=== PATIENT | male | born 1955 | race Caucasian/White ===

== ENCOUNTER 2017-06-07 11:35 | Inpatient (IN) | payer OTHER ==
[~2017-06-07] VITALS: Ht 180.3 cm; Wt 70.4 kg
[~2017-06-07 11:35] MED LIST: ALEVE220 MG PO; AMITRIPTYLINE H50 MG PO; AMLODIPINE BESY10 MG PO; APRESOLINE25 MG PO; ASPIR-LOW81 MG PO; ATORVASTATIN CA10 MG PO; AUGMENTIN875 MG PO; BACTRIM,SEPT1 TABLET PO; BENTYL10 MG PO; CEPHALEXIN500 MG PO; CITALOPRAM HBR10 MG PO; CLONIDINE1 EAC1 TD; COLACE100 MG PO; CONZIP100 MG PO; DICYCLOMINE HCL10 MG PO; ELAVIL100 MG PO; ENDOCET 5-3251 EACH PO; FOLIC ACID1 MG PO; IBUPROFEN800 MG PO; INDOCIN50 MG PO; K-DUR20 MEQ PO; KLOR-CON20 MEQ PO; LIBRIUM25 MG PO; LIPITOR10 MG PO; LISINOPRIL10 MG PO; LISINOPRIL20 MG PO; LOPRESSOR25 MG PO; LOPRESSOR50 MG PO; METOCLOPRAMIDE H5 MG PO; METOPROLOL TART25 MG PO; NAPROSYN500 MG PO; NAPROXEN500 MG PO; NICOTINE PATCH1 EAC2 TD; NOHOMEMEDS; NORCO 5/3251 TABLET PO; NORVASC10 MG PO; OMEPRAZOLE40 M1 PO; OXYCODONE HCL5 MG PO; PEPTO BISMOL240 ML PO; PERCOCET 5/31 TABLET PO; PRILOSEC20 MG PO; RISPERDAL0.5 MG PO; ROXICODONE5 MG PO; STOOL SOFTENER100 MG PO; THERAGRAN1 TABLET PO; TRAMADOL HCL50 MG PO; TUMS500 MG PO; Thiamine,Vitamin B1 PO; VALIUM5 MG PO; WARFARIN SODIUM5 MG PO; ZOFRAN ODT8 MG PO
[2017-06-07 12:42] LABS: HEMATOCRIT 42.5 % (38.0-50.0); MCH 35.6 PG (29.0-34.0); MCHC 35.3 G/DL (30.0-36.0); MEAN PLAT.VOLUME 10.7 uM^3 (9.0-12.4); PLATELET COUNT 213 K/uL (156-360); RBC DIS.WIDTH-CV 13.5 % (11.8-14.6); RBC DIS.WIDTH-SD 50.7 % (39-53); RED BLOOD COUNT 4.21 M/uL (4.00-5.50)
[2017-06-07 12:52] LABS: CHLORIDE 106 mEq/L (99-109); POTASSIUM 4.3 mEq/L (3.7-5.4); SODIUM 145 mEq/L (136-147)
[2017-06-07 12:54] LABS: GLUCOSE 88 mg/dL (70-99)
[2017-06-07 12:56] LABS: ANION GAP 12 MEQ/L (2-14)
[2017-06-07 12:58] LABS: GFR ESTIMATE (CALCULATED) > 59 mL/min/
[2017-06-07 12:59] LABS: UREA NITROGEN (BUN) 13 mg/dL (9-23)
[2017-06-07 13:36] LABS: TROP-I INTERPRETATION NEGATIVE; TROPONIN-I < 0.01 ng/mL (0.0-0.30)
[2017-06-07 13:43] LABS: TOTAL BILIRUBIN 0.5 mg/dL (0.0-1.0)
[2017-06-07 13:44] LABS: ALKALINE PHOSPHATASE 77 IU/L (3-129)
[2017-06-07 13:46] LABS: DIRECT BILIRUBIN 0.2 mg/dL (0.0-0.3)
[2017-06-07 16:35] LABS: TROP-I INTERPRETATION NEGATIVE; TROPONIN-I < 0.01 ng/mL (0.0-0.30)
[2017-06-07 18:38] LABS: TROP-I INTERPRETATION NEGATIVE; TROPONIN-I < 0.01 ng/mL (0.0-0.30)
[2017-06-07 20:00] VITALS: BP 175/91
[2017-06-07 21:02] LABS: MAGNESIUM 1.6 mg/dL (1.3-2.7)
[2017-06-07 21:21] LABS: Estimated Average Glucose 97 mg/dL (70-123)
[2017-06-07 21:25] LABS: HDL CHOLESTEROL 103 MG/DL (Desirable>=40); LDL CHOLESTEROL 107 mg/dL (Desirable<100); NON-HDL CHOLESTEROL 123 mg/dL (Desirable<160); TOTAL CHOLESTEROL 226 mg/dL (Desirable<200); TRIGLYCERIDES 78 MG/DL (Normal: <150)
[2017-06-08] VITALS (7 sets, daily range): BP systolic 141–185; BP diastolic 79–97
[2017-06-08 01:30] LABS: TROP-I INTERPRETATION NEGATIVE; TROPONIN-I 0.01 ng/mL (0.0-0.30)
[2017-06-08 02:06] LABS: AMPHETAMINES QUANT VALUE 0 NG/ML; BARBITUATES QUANT VALUE 0 NG/ML; BENZODIAZEPINES QUANT VALUE 0 NG/ML; BENZODIAZEPINES, URINE SCREEN Negative (200 ng/mL); MARIJUANA QUANT VALUE 0 NG/ML; PHENCYCLIDINE QUANT VALUE 0 NG/ML
[2017-06-08 05:50] LABS: TROP-I INTERPRETATION NEGATIVE; TROPONIN-I 0.01 ng/mL (0.0-0.30)
[2017-06-08] MEDS ORDERED: ATORVASTATIN CA40 MG PO (10:26)
[2017-06-08] MEDS ORDERED: ASPIR-LOW81 MG PO (10:26)
[2017-06-08] MEDS ORDERED: LOPRESSOR25 MG PO (10:26)
[2017-06-08] MEDS ORDERED: LISINOPRIL10 MG PO (10:26)
[2017-06-08] MEDS ORDERED: LISINOPRIL20 MG PO (12:53)
[2017-06-09 04:11] VITALS: BP 162/68
[2017-06-09 08:40] VITALS: BP 166/87
[2017-06-09 11:20] VITALS: BP 178/93
[2017-06-09 16:10] VITALS: BP 178/93
[2017-06-09 20:21] VITALS: BP 138/85
[2017-06-09 23:43] VITALS: BP 129/73
[2017-06-10] VITALS: BP 129/73
[2017-06-10 03:40] VITALS: BP 157/84
[2017-06-10 08:27] VITALS: BP 152/82
[2017-06-10 09:06] LABS: HEMATOCRIT 35.6 % (38.0-50.0); MCH 36.7 PG (29.0-34.0); MCHC 34.8 G/DL (30.0-36.0); MEAN PLAT.VOLUME 11.8 uM^3 (9.0-12.4); NRBC (%) 0.1 /100 WBC (0-0); PLATELET COUNT 161 K/uL (156-360); RBC DIS.WIDTH-CV 13.8 % (11.8-14.6); RBC DIS.WIDTH-SD 53.8 % (39-53); RED BLOOD COUNT 3.38 M/uL (4.00-5.50)
[2017-06-10 09:10] LABS: MCV 105.3 FL (86-99)
[2017-06-10 09:23] LABS: ANION GAP 8 MEQ/L (2-14); CHLORIDE 109 MEQ/L (99-109); GFR ESTIMATE (CALCULATED) > 59 mL/min/; GLUCOSE 127 mg/dL (70-99); POTASSIUM 4.2 MEQ/L (3.7-5.4); SAMPLE HEMOLYSIS CHECK 0; SAMPLE ICTERIC CHECK 0; SAMPLE LIPEMIA CHECK 0; SODIUM 142 MEQ/L (136-147); UREA NITROGEN (BUN) 17 mg/dL (9-23)
[2017-06-10 12:09] VITALS: BP 149/83
[2017-06-10] MEDS ORDERED: CELECOXIB200 MG PO (15:30)
[2017-06-10] MEDS ORDERED: LISINOPRIL20 MG PO (15:30)
[2017-06-10] MEDS ORDERED: ENDOCET 5-3251 EACH PO (15:30)
[2017-06-10] MEDS ORDERED: LOPRESSOR25 MG PO (15:31)
[2017-06-10] MEDS ORDERED: CYCLOBENZAPRINE10 MG PO (15:31)
[2017-06-10 16:01] VITALS: BP 137/81
== END 2017-06-10 17:53 | disposition home health service (06) | DRG 472 ==
LOC: EME 11:35 → 5WEST 16:07 → EDOF 16:07 → ENRESERV 16:14 → 5WEST 19:46 → 3EAST 06-08 13:23 → 5WEST 06-08 13:23 → ENRESERV 06-08 14:03 → 5WEST 06-09 12:20 → ENRESERV 06-09 12:32 → 3EAST 06-09 15:11
PROVIDERS: Hospitalist; Physician Assistant
DX: M47.12 Other spondylosis with myelopathy, cervical region (principal); S12.400A Unspecified displaced fracture of fifth cervical vertebra, initial encounter for closed fracture; I10 Essential (primary) hypertension; M43.5X2 Other recurrent vertebral dislocation, cervical region; M48.02 Spinal stenosis, cervical region; F10.20 Alcohol dependence, uncomplicated; F17.200 Nicotine dependence, unspecified, uncomplicated; M43.12 Spondylolisthesis, cervical region; M46.82 Other specified inflammatory spondylopathies, cervical region; M54.12 Radiculopathy, cervical region; Z90.81 Acquired absence of spleen; Z83.3 Family history of diabetes mellitus; Z79.899 Other long term (current) drug therapy; Z91.14 Patient's other noncompliance with medication regimen; I25.10 Atherosclerotic heart disease of native coronary artery without angina pectoris; R27.0 Ataxia, unspecified; R29.2 Abnormal reflex; G89.29 Other chronic pain; M54.2 Cervicalgia; Z86.73 Personal history of transient ischemic attack (TIA), and cerebral infarction without residual deficits; E78.5 Hyperlipidemia, unspecified; K21.9 Gastro-esophageal reflux disease without esophagitis; M54.9 Dorsalgia, unspecified
CPT/HCPCS: 70450; 70551; 72020; 72040; 72125; 72141; 76000; 80048; 80061; 80076; 80306 90; 82607; 83036; 83735; 84484; 85027; 93005; 99281; 99285; C1713; G0378; J0131; J0360; J0690; J1100; J1170; J1200; J1885; J2250; J2270; J2405; J3010; J3411; J3475; J3480; J7030

== ENCOUNTER 2017-06-28 01:30 | Observation (INO) | payer OTHER ==
[~2017-06-28] VITALS: Ht 180.3 cm; Wt 68.3 kg
[~2017-06-28 01:30] MED LIST changes: +ATORVASTATIN CA40 MG PO; +CELECOXIB200 MG PO; +CYCLOBENZAPRINE10 MG PO
[2017-06-28 02:23] LABS: CHLORIDE 101 mEq/L (99-109); POTASSIUM 4.1 mEq/L (3.7-5.4); SODIUM 143 mEq/L (136-147)
[2017-06-28 02:25] LABS: GLUCOSE 91 mg/dL (70-99)
[2017-06-28 02:26] LABS: ANION GAP 17 MEQ/L (2-14)
[2017-06-28 02:27] LABS: HEMATOCRIT 37.8 % (38.0-50.0); MCH 35.2 PG (29.0-34.0); MCHC 35.2 G/DL (30.0-36.0); MEAN PLAT.VOLUME 10.1 uM^3 (9.0-12.4); PLATELET COUNT 406 K/uL (156-360); RBC DIS.WIDTH-CV 11.9 % (11.8-14.6); RBC DIS.WIDTH-SD 43.6 % (39-53); RED BLOOD COUNT 3.78 M/uL (4.00-5.50); WHITE BLOOD COUNT 12.5 K/uL (4.1-10.2)
[2017-06-28 02:29] LABS: GFR ESTIMATE (CALCULATED) > 59 mL/min/
[2017-06-28 02:30] LABS: UREA NITROGEN (BUN) 13 mg/dL (9-23)
[2017-06-28 02:35] LABS: TROP-I INTERPRETATION NEGATIVE; TROPONIN-I 0.01 ng/mL (0.0-0.30)
[2017-06-28] MEDS ORDERED: OMEPRAZOLE40 M1 PO ×2 (03:09→10:04)
[2017-06-28] MEDS ORDERED: DICLOFENAC POTA50 MG PO (03:10)
[2017-06-28 05:07] VITALS: BP 202/99
[2017-06-28 06:34] VITALS: BP 185/95
[2017-06-28 08:27] VITALS: BP 179/88
[2017-06-28 08:42] LABS: TROP-I INTERPRETATION NEGATIVE; TROPONIN-I < 0.01 ng/mL (0.0-0.30)
[2017-06-28] MEDS ORDERED: LIPITOR40 MG PO (10:03)
[2017-06-28 12:22] VITALS: BP 156/84
[2017-06-28 14:19] LABS: TROP-I INTERPRETATION NEGATIVE; TROPONIN-I < 0.01 ng/mL (0.0-0.30)
== END 2017-06-28 15:29 | disposition home or self-care (01) ==
LOC: EME → EDBD 01:30 → EDOF 03:30 → ENRESERV 03:31 → 5WEST 04:56
PROVIDERS: Emergency Medicine; Nurse Practitioner Adult Health
DX: R07.9 Chest pain, unspecified (principal); M54.2 Cervicalgia; F10.20 Alcohol dependence, uncomplicated; F17.200 Nicotine dependence, unspecified, uncomplicated; I10 Essential (primary) hypertension; E78.5 Hyperlipidemia, unspecified; R06.02 Shortness of breath; Z90.81 Acquired absence of spleen; Z83.3 Family history of diabetes mellitus
CPT/HCPCS: 71020; 80048; 83880; 84484; 85027; 93005; 93306; 99281; 99285; G0378; J1644; J2270; J2405

== ENCOUNTER 2017-07-15 16:01 | Emergency (ER) | payer OTHER ==
[~2017-07-15] VITALS: Ht 172.7 cm; Wt 69.8 kg
[~2017-07-15 16:01] MED LIST changes: +DICLOFENAC POTA50 MG PO; +LIPITOR40 MG PO
[2017-07-15 18:44] LABS: HEMATOCRIT 34.8 % (38.0-50.0); MCH 34.8 PG (29.0-34.0); MCHC 34.5 G/DL (30.0-36.0); MCV 100.9 FL (86-99); RBC DIS.WIDTH-CV 12.6 % (11.8-14.6); RBC DIS.WIDTH-SD 47.1 % (39-53); RED BLOOD COUNT 3.45 M/uL (4.00-5.50)
[2017-07-15 18:50] LABS: CHLORIDE 109 mEq/L (99-109); POTASSIUM 3.5 mEq/L (3.7-5.4); SODIUM 143 mEq/L (136-147)
[2017-07-15 18:52] LABS: GLUCOSE 119 mg/dL (70-99)
[2017-07-15 18:54] LABS: ANION GAP 13 MEQ/L (2-14)
[2017-07-15 18:55] LABS: SERUM ETHYL ALCOHOL 249 mg/dL
[2017-07-15 18:56] LABS: GFR ESTIMATE (CALCULATED) > 59 mL/min/
[2017-07-15 18:57] LABS: UREA NITROGEN (BUN) 21 mg/dL (9-23)
[2017-07-15 19:22] LABS: MEAN PLAT.VOLUME 10.8 uM^3 (9.0-12.4); PLAT.SUFFICIENCY ADEQUATE; PLATELET COUNT 179 K/uL (156-360)
[2017-07-15 20:59] LABS: ADD MEDTOX COMMENT Y; AMPHETAMINE NEGATIVE (500 ng/mL); BARBITURATES NEGATIVE (200 ng/mL); BENZODIAZEPINES PRESUMPTIVE POSITIVE (150 ng/mL); COCAINE NEGATIVE (150 ng/mL); INTERNAL CONTROLS VALID? YES; METHADONE NEGATIVE (200 ng/mL); METHAMPHETAMINE NEGATIVE (500 ng/mL); OPIATES (MORPHINE) PRESUMPTIVE POSITIVE (100 ng/mL); OXYCODONE PRESUMPTIVE POSITIVE (100 ng/mL); PHENCYCLIDINE NEGATIVE (25 ng/mL); PROPOXYPHENE NEGATIVE (300 ng/mL); THC CANNABINOIDS NEGATIVE (50 ng/mL); TRICYCLIC ANTIDEPRESSANTS NEGATIVE (300 ng/mL)
[2017-07-15 21:24] LABS: BENZODIAZEPINES QUANT VALUE 0 NG/ML; BENZODIAZEPINES, URINE SCREEN Negative (200 ng/mL)
[2017-07-16 02:29] VITALS: BP 97/76
== END 2017-07-16 02:31 | disposition home or self-care (01) ==
LOC: EME 16:01
PROVIDERS: Emergency Medicine
DX: F43.23 Adjustment disorder with mixed anxiety and depressed mood (principal); R45.851 Suicidal ideations; F10.129 Alcohol abuse with intoxication, unspecified; F17.200 Nicotine dependence, unspecified, uncomplicated; Z86.73 Personal history of transient ischemic attack (TIA), and cerebral infarction without residual deficits; K21.9 Gastro-esophageal reflux disease without esophagitis; I10 Essential (primary) hypertension
CPT/HCPCS: 80048; 84999; 85027; 90839; 99281; 99285; G0480; J7042

== ENCOUNTER 2017-08-07 08:49 | Emergency (ER) | payer OTHER ==
[~2017-08-07] VITALS: Ht 180.3 cm; Wt 70.3 kg
[2017-08-07 12:37] LABS: BASOPHIL COUNT 0.1 K/uL (0-0.1); EOSINOPHIL (%) 0.5 % (0-5); EOSINOPHIL COUNT 0.1 K/uL (0-0.3); HEMATOCRIT 42.5 % (38.0-50.0); IMMATURE GRANULOCYTE (%) 0.3 % (0.0-0.7); IMMATURE GRANULOCYTE COUNT 0.1 K/uL; INSTRUMENT ABS NEUTROPHIL CT 9.8 K/uL; MCH 33.9 PG (29.0-34.0); MCHC 33.9 G/DL (30.0-36.0); MEAN PLAT.VOLUME 10.9 uM^3 (9.0-12.4); MONOCYTE (%) 10.1 % (3-12); MONOCYTE COUNT 1.5 K/uL (0-0.8); NEUTROPHIL (%) 67.7 % (45-76); NEUTROPHIL COUNT 9.8 K/uL (1.8-6.4); PLATELET COUNT 332 K/uL (156-360); RBC DIS.WIDTH-CV 12.8 % (11.8-14.6); RED BLOOD COUNT 4.25 M/uL (4.00-5.50); WHITE BLOOD COUNT 14.4 K/uL (4.1-10.2)
[2017-08-07 12:39] LABS: CHLORIDE 100 mEq/L (99-109); POTASSIUM 4.5 mEq/L (3.7-5.4); SODIUM 139 mEq/L (136-147)
[2017-08-07 12:41] LABS: GLUCOSE 99 mg/dL (70-99)
[2017-08-07 12:42] LABS: ANION GAP 12 MEQ/L (2-14)
[2017-08-07 12:45] LABS: GFR ESTIMATE (CALCULATED) > 59 mL/min/
[2017-08-07 12:46] LABS: UREA NITROGEN (BUN) 20 mg/dL (9-23)
[2017-08-07] MEDS ORDERED: BACTRIM,SEPT1 TABLET PO (16:17)
[2017-08-07] MEDS ORDERED: PERCOCET 7.51 TABLET PO (16:17)
[2017-08-07] MEDS ORDERED: PERCOCET 5/31 TABLET PO (16:19)
[2017-08-07 16:57] VITALS: BP 167/82
== END 2017-08-07 16:58 | disposition home or self-care (01) ==
LOC: EME 08:49
PROVIDERS: Emergency Medicine
DX: R22.1 Localized swelling, mass and lump, neck (principal); I10 Essential (primary) hypertension; K21.9 Gastro-esophageal reflux disease without esophagitis; F41.9 Anxiety disorder, unspecified; Z86.73 Personal history of transient ischemic attack (TIA), and cerebral infarction without residual deficits; Z87.01 Personal history of pneumonia (recurrent); F17.200 Nicotine dependence, unspecified, uncomplicated; F10.10 Alcohol abuse, uncomplicated
CPT/HCPCS: 70491; 80048; 85025; 85651; 99281; 99284; J3010; J7030

== ENCOUNTER 2017-08-10 15:14 | Emergency (ER) | payer OTHER ==
[~2017-08-10] VITALS: Ht 180.3 cm; Wt 69.9 kg
[~2017-08-10 15:14] MED LIST changes: +PERCOCET 7.51 TABLET PO
[2017-08-10] MEDS ORDERED: MOTRIN600 MG PO (16:47)
[2017-08-10] MEDS ORDERED: PERCOCET 5/31 TABLET PO (16:47)
[2017-08-10] MEDS ORDERED: SKELAXIN800 MG PO (16:47)
[2017-08-10 17:51] VITALS: BP 124/82
== END 2017-08-10 17:52 | disposition home or self-care (01) ==
LOC: EME 15:14
DX: M54.12 Radiculopathy, cervical region (principal); Z98.1 Arthrodesis status; F17.200 Nicotine dependence, unspecified, uncomplicated
CPT/HCPCS: 71020; 99281; 99283

== ENCOUNTER 2018-04-04 10:31 | Emergency (ER) | payer OTHER ==
[~2018-04-04] VITALS: Ht 180.3 cm; Wt 72.4 kg
[~2018-04-04 10:31] MED LIST changes: +MOTRIN600 MG PO; +SKELAXIN800 MG PO
[2018-04-04] MEDS ORDERED: ULTRACET1 TABLET PO (13:05)
[2018-04-04 13:27] VITALS: BP 139/80
== END 2018-04-04 13:28 | disposition home or self-care (01) ==
LOC: EME 10:31
DX: R20.0 Anesthesia of skin (principal); M79.662 Pain in left lower leg; F17.200 Nicotine dependence, unspecified, uncomplicated; I10 Essential (primary) hypertension; K21.9 Gastro-esophageal reflux disease without esophagitis; F41.9 Anxiety disorder, unspecified; Z86.73 Personal history of transient ischemic attack (TIA), and cerebral infarction without residual deficits
CPT/HCPCS: 93926; 99281; 99285; J1100